=== PATIENT | female | born 1980 | race African-American/Black ===

== ENCOUNTER 2017-02-05 06:32 | Emergency (ER) | payer OTHER ==
[~2017-02-05] VITALS: Ht 165.1 cm; Wt 94.0 kg
[2017-02-05] MEDS ORDERED: MORPHINE SULFATE 4 MG/ML CPJ (NOT FOR IM USE) IV STA (07:18)
[2017-02-05] MEDS ORDERED: ONDANSETRON HCL 4MG/2ML VIAL IV STA (07:18)
[2017-02-05 07:36] LABS: BASOPHILS % 0.7 % (0.0-2.0); EOSINOPHILS % 0.8 % (0.0-5.0); HEMATOCRIT. 33.1 % (36.0-48.0); LYMPHOCYTES % 26.6 % (20.0-50.0); MEAN CORPUSCULAR HEMOGLOBIN 28.7 pg (28.0-32.0); MEAN CORPUSCULAR VOLUME 86.1 fL (81.0-99.0); MEAN PLATELET VOLUME 9.4 fl (7.4-10.4); MONOCYTES % 11.5 % (2.0-8.0); NEUTROPHILS % 60.4 % (40.0-76.0); PLATELET 157 x1000/uL (130-400); RED BLOOD CELL COUNT 3.84 mill/uL (4.2-5.4); RED CELL DISTRIBUTION WIDTH 12.9 % (11.6-14.6)
[2017-02-05 07:44] LABS: CLARITY URINE TURBID (CLEAR); COLOR URINE YELLOW (YELLOW); GLUCOSE URINE NEGATIVE (NEGATIVE); KETONES URINE NEGATIVE (NEGATIVE); LEUKOCYTE ESTERASE URINE NEGATIVE (NEGATIVE); NITRITE URINE NEGATIVE (NEGATIVE); OCCULT BLOOD URINE NEGATIVE (NEGATIVE); PH URINE 5.5 (4.5-8.0); PROTEIN URINE TRACE (NEGATIVE); SPECIFIC GRAVITY URINE 1.041 (1.005-1.030)
[2017-02-05 07:44] LABS: INR 1.1; PROTHROMBIN TIME 11.3 sec
[2017-02-05 07:53] LABS: CARBON DIOXIDE 27 mEq/L (21-32); CHLORIDE 106 mEq/L (98-107)
[2017-02-05 08:12] LABS: HCG SCREEN NEGATIVE
[2017-02-05] MEDS ORDERED: ONDANSETRON HCL 4MG/2ML VIAL IV ONE (08:45)
[2017-02-05] MEDS ORDERED: KETOROLAC 30MG/ML VIAL IV ONE (08:45)
[2017-02-05 11:30] VITALS: BP 125/73
== END 2017-02-05 11:32 | disposition home or self-care (01) ==
LOC: ER 06:33
DX: N39.0 Urinary tract infection, site not specified (principal)
CPT/HCPCS: 36415; 74176; 80053; 81001; 83690; 84703; 85025; 85610; 93005; 96374; 96375; 96376; 99285; J1885; J2270; J2405; Z7610

== ENCOUNTER 2017-05-02 02:56 | Emergency (ER) | payer OTHER ==
[~2017-05-02] VITALS: Ht 165.1 cm; Wt 95.0 kg
[2017-05-02] MEDS ORDERED: ONDANSETRON 4MG ODT PO ONE (05:30)
[2017-05-02] MEDS ORDERED: KETOROLAC 30MG/ML VIAL IM ONE (05:30)
[2017-05-02 10:20] VITALS: BP 114/76
== END 2017-05-02 10:39 | disposition home or self-care (01) ==
LOC: ER 02:56
DX: S20.211A Contusion of right front wall of thorax, initial encounter (principal); Z98.84 Bariatric surgery status; V49.9XXA Car occupant (driver) (passenger) injured in unspecified traffic accident, initial encounter; Y93.89 Activity, other specified; Y99.8 Other external cause status; Y92.411 Interstate highway as the place of occurrence of the external cause
CPT/HCPCS: 71111; 72040; 73610; 81025; 96372; 99284; J1885; Q0162

== ENCOUNTER 2018-01-04 01:19 | Emergency (ER) | payer OTHER ==
[~2018-01-04] VITALS: Ht 165.1 cm; Wt 79.0 kg
[2018-01-04] MEDS ORDERED: IBUPROFEN 800MG TABLET PO ONE (04:30)
[2018-01-04 05:41] VITALS: BP 123/77
== END 2018-01-04 05:48 | disposition home or self-care (01) ==
LOC: ER 01:19
DX: M77.9 Enthesopathy, unspecified (principal)
CPT/HCPCS: 99283

== ENCOUNTER 2018-05-22 16:08 | Emergency (ER) | payer OTHER ==
[~2018-05-22] VITALS: Ht 162.6 cm; Wt 82.0 kg
[2018-05-22 20:38] VITALS: BP 117/84
== END 2018-05-22 20:44 | disposition home or self-care (01) ==
LOC: ER 16:08
DX: G56.01 Carpal tunnel syndrome, right upper limb (principal)
CPT/HCPCS: 99281

== ENCOUNTER 2020-09-07 05:32 | Emergency (ER) | payer OTHER ==
[~2020-09-07] VITALS: Ht 162.6 cm; Wt 88.0 kg
[2020-09-07 07:10] LABS: CLARITY URINE CLEAR (CLEAR); COLOR URINE YELLOW (YELLOW); KETONES URINE TRACE (NEGATIVE); LEUKOCYTE ESTERASE URINE TRACE (NEGATIVE); NITRITE URINE NEGATIVE (NEGATIVE); OCCULT BLOOD URINE NEGATIVE (NEGATIVE); PH URINE 5.5 (4.5-8.0); PROTEIN URINE NEGATIVE (NEGATIVE); SPECIFIC GRAVITY URINE 1.019 (1.005-1.030)
[2020-09-07] MEDS ORDERED: IBUPROFEN 600MG TABLET PO ONE (09:15)
[2020-09-07] MEDS ORDERED: NITR-87 MT (09:53)
[2020-09-07 10:10] VITALS: BP 121/72
[2020-09-08 09:40] LABS: UCG SCREEN NEGATIVE
== END 2020-09-07 11:23 | disposition home or self-care (01) ==
LOC: ER 05:32
DX: D25.9 Leiomyoma of uterus, unspecified (principal); N39.0 Urinary tract infection, site not specified; Z90.721 Acquired absence of ovaries, unilateral
CPT/HCPCS: 76830; 76856; 81003; 81025; 93005; 99285